=== PATIENT | female | born 1975 | race Caucasian/White ===

== ENCOUNTER 2016-07-19 07:11 | Observation (INO) | payer MEDICAID ==
[2016-07-19] MEDS ORDERED: NS 1,000 ML IV ONE (07:22)
--- NOTE | 2016-07-19 07:39 | CPEKG ---
Heart Rate: 86 RR Interval: 698 P-R Interval: 144 QRSD Interval: 84 QT Interval: 376 QTC Interval: 450 P [place]: 67 QRS [place]: 84 T Wave [place]: 48 EKG Severity - NORMAL ECG - EKG Impression: SINUS RHYTHM Electronically Signed By: Nixon Salazar 19-Jul-2016 14:19:43
[2016-07-19 07:59] LABS: % IMMATURE GRANULYOCYTES 0.2 % (0.0-1.1); ABSOLUTE IMMATURE GRANULOCYTES 0.01 10^3/uL (0.00-0.10); ADD DIFF? NO; ADD MORPH? NO; ADD SCAN? NO; ATYPICAL LYMPHOCYTE FLAG 0 (0-99); FRAGMENT RBC FLAG 0 (0-99); HEMATOCRIT 41.6 % (38.0-47.0); HEMOGLOBIN 14.2 g/dL (12.6-16.3); LEFT SHIFT FLG 0 (0-99); LIPEMIA HEMOLYSIS FLAG 90 (0-99); MEAN CELL HEMOGLOBIN 28.9 pg (27.9-34.1); MEAN CELL HEMOGLOBIN CONCENTR. 34.1 g/dL (32.4-36.7); MEAN CELL VOLUME 84.7 fL (81.5-99.8); PLATELET CLUMPS FLAG 0 (0-99); PLATELET COUNT 359 10^3/uL (150-400); RED BLOOD CELL COUNT 4.91 10^6/uL (4.18-5.33)
[2016-07-19 08:09] LABS: INR 1.13 (0.83-1.16); PROTIME(PATIENT) 14.4 SEC (12.0-15.0)
[2016-07-19 08:10] LABS: APTT 28.7 SEC (23.0-38.0)
[2016-07-19] MEDS ORDERED: BUPIVACAINE 0.5% 30 ML SDV ONE (08:14)
[2016-07-19] MEDS ORDERED: HEPARIN 10,000 UNIT/10 ML MDV ONE (08:14)
[2016-07-19] MEDS ORDERED: LIDOCAINE 1% 30 ML SDV ONE (08:14)
[2016-07-19] MEDS ORDERED: ISOPROTERENOL HCL 0.2 MG/ML 5ML AMP ONE (08:14)
[2016-07-19 08:15] LABS: ANION GAP 10 mEq/L (8-16); CARBON DIOXIDE 24 mEq/l (22-31); CHLORIDE 107 mEq/L (97-110); CREATININE 0.6 mg/dL (0.6-1.0); GLOMERULAR FILTRATION RATE > 60; GLUCOSE 90 mg/dL (70-100); MAGNESIUM 2.1 mg/dL (1.6-2.3); POTASSIUM 3.9 mEq/L (3.5-5.2); SODIUM 141 mEq/L (134-144)
[2016-07-19] MEDS ORDERED: IOPAMIDOL (ISOVUE-370) 150 ML BTL IV ONE (09:11)
[2016-07-19] MEDS ORDERED: HEPARIN/DEXTROSE 25,000 UNIT/500 ML BAG IV ONE (09:14)
[2016-07-19] MEDS ORDERED: PHENYLEPHRINE HCL 100 MCG/ML SYR ONE (09:28)
[2016-07-19] MEDS ORDERED: ONDANSETRON 4 MG/2 ML VIAL IVP PRN (11:32)
[2016-07-19] MEDS ORDERED: PROTAMINE SULFATE 50 MG/5 ML VIAL IVP ONE (11:32)
[2016-07-19] MEDS ORDERED: ACETAMINOPHEN 325 MG TAB PO PRN (11:32)
[2016-07-19] MEDS ORDERED: traMADol 50 MG TAB PO PRN (11:34)
[2016-07-19] MEDS ORDERED: LIDOCAINE 5% 1 EA PATCH TD PRN (11:34)
[2016-07-19] MEDS ORDERED: Fluticasone/Salmeterol [Advair Hfa 115-21 Mcg Inhaler] 2 PUFFS IH PRN (11:34)
[2016-07-19] MEDS ORDERED: ZOLPIDEM TARTRATE 5 MG TAB PO PRN (11:34)
[2016-07-19] MEDS ORDERED: fentaNYL 100 MCG/2 ML INJ ONE ×2 (11:54→12:45)
--- NOTE | 2016-07-19 11:58 | EPPROC ---
Electrophysiology Procedure Note: ELECTROPHYSIOLOGIC STUDY AND CATHETER MEDIATED ABLATION OF PREMATURE VENTRICULAR BEATS ORIGINATING IN THE LEFT CORONARY CUSP Procedures performed: 88636-90 EP evaluation with RA/RV/LA pace/record, with arrhythmia induction 20598-28 EP evaluation with RA/RV pace record, insert/reposition catheter, with arrhythmia induction 44254 Intracardiac catheter ablation, VT arrhythmogenic focus Fluoroscopy Coronary angiogram Left ventriculogram INDICATION: Recurrent PVC, not controlled with CCB Cannot take BB due to lung disease Previous EP study with sedation suppressed PVC The patient arrived in the Electrophysiology Laboratory in the fasting state. The right clavicular region, right groin, and left groin area were prepped and draped in the usual sterile manner. Appropriate non-invasive blood pressure, pulse oximetry and end-tidal CO2 monitoring was established. Anesthesiologist Dr. Ambrosio Grant. No sedation was administered for the case. All catheters were placed percutaneously using the modified Seldinger technique , and advanced into position under fluoroscopic guidance. One #7 Tamazight deflectable octapolar electrode catheter was advanced to the His-bundle position via the right femoral vein , this was later placed in the coronary sinus. 7 Fr arterial sheath was placed in RFA and 6 Fr sheath placed in the LFA. Heparin was administered to keep ACT > 300 seconds. Programmed stimulation was performed from the right atrium, right ventricle and CS (left atrium). The patient arrived to the electrophysiology laboratory in normal sinus rhythm with frequent PVC. PVC morphology LBBB inferior axis with QRS positive in leads V1-V6. Therefore we decided to map the LVOT and coronary cusps to start with. PVC frequency increased with albuterol inhaler. A 4 mm Navistar ablation catheter (B curve) with a magnetic sensor for the Carto 3D electroanatomic mapping system was used for mapping. Mapping (during PVC) of the left ventricular outflow tract, sinuses of Valsalva and anterior interventricular vein identified earliest ventricular activation at the mid left coronary cusp. Ventricular activation began 50 ms before the onset of the QRS complex with sharp negative deflection in the unipolar electrode. Coronary angiogram done simultaneously showed the ablation catheter was 1.3 cm away from the left main coronary artery. Ablation done at this site terminated PVC. Observation for 45 minutes after the application of radiofrequency current was performed during phenyephrine boluses and albuterol inhalation. No spontaneous ventricular extra systoles of the primary pattern seen prior to ablation were induced spontaneously . Rare ventricular extra systoles with different patterns were observed but these were due to catheter manipulation or mechanical contact. Left coronary angiogram at the end of the procedure did not show any coronary artery injury. Patient remained hemodynamically stable throughout the procedure. The catheters were removed. Protamine was administered. The patient was transferred to the cardiovascular holding area in stable condition. Vascular access sheaths were removed in the holding area. There were no apparent complications. CONCLUSIONS: 1. Premature ventricular beats originating from the left coronary cusp. 2. Successful catheter mediated ablation of the premature ventricular beats. 3. No apparent complications. Patient Problems: Problems Problem Status Diagnosed Ventricular premature complexes Acute
--- NOTE | 2016-07-19 12:07 | CPEKG ---
Heart Rate: 83 RR Interval: 723 QRSD Interval: 88 QT Interval: 392 QTC Interval: 461 QRS [place]: 82 T Wave [place]: 50 EKG Severity - ABNORMAL ECG - EKG Impression: NSR Electronically Signed By: Nixon Salazar 19-Jul-2016 14:19:30
[2016-07-19 12:44] LABS: ANION GAP 10 mEq/L (8-16); CARBON DIOXIDE 24 mEq/l (22-31); CHLORIDE 109 mEq/L (97-110); CREATININE 0.7 mg/dL (0.6-1.0); GLOMERULAR FILTRATION RATE > 60; GLUCOSE 94 mg/dL (70-100); MAGNESIUM 1.9 mg/dL (1.6-2.3); POTASSIUM 3.9 mEq/L (3.5-5.2); SODIUM 143 mEq/L (134-144)
[2016-07-19] MEDS: OXYCODONE/APAP 5/325 TAB PO PRN ×3 (15:28→20:23)
[2016-07-19] MEDS: predniSONE 5 MG TAB PO SCH ×2 (16:39→20:25)
[2016-07-19] MEDS: BACLOFEN 20 MG TAB PO SCH ×2 (16:39→20:25)
[2016-07-19] MEDS: PANTOPRAZOLE SODIUM 40 MG TAB PO SCH (20:22)
[2016-07-19] MEDS ORDERED: FAMOTIDINE 20 MG TAB PO SCH (21:00)
[2016-07-19] MEDS: IPRATROPIUM/ALBUTEROL 4GM MDI IH SCH (22:49)
[2016-07-20] MEDS: OXYCODONE/APAP 5/325 TAB PO PRN ×2 (02:04→05:52)
[2016-07-20 05:09] LABS: % IMMATURE GRANULYOCYTES 0.2 % (0.0-1.1); ABSOLUTE IMMATURE GRANULOCYTES 0.01 10^3/uL (0.00-0.10); ADD DIFF? NO; ADD MORPH? NO; ADD SCAN? NO; ATYPICAL LYMPHOCYTE FLAG 0 (0-99); FRAGMENT RBC FLAG 0 (0-99); HEMATOCRIT 36.8 % (38.0-47.0); HEMOGLOBIN 12.2 g/dL (12.6-16.3); LEFT SHIFT FLG 0 (0-99); LIPEMIA HEMOLYSIS FLAG 80 (0-99); MEAN CELL HEMOGLOBIN 28.8 pg (27.9-34.1); MEAN CELL HEMOGLOBIN CONCENTR. 33.2 g/dL (32.4-36.7); MEAN CELL VOLUME 86.8 fL (81.5-99.8); MEAN PLATELET VOLUME 9.5 fL (8.7-11.7); PLATELET CLUMPS FLAG 0 (0-99); PLATELET COUNT 299 10^3/uL (150-400); RED BLOOD CELL COUNT 4.24 10^6/uL (4.18-5.33); RED CELL DISTRIBUTION WIDTH 12.2 % (11.5-15.2)
[2016-07-20 05:14] LABS: INR 1.13 (0.83-1.16); PROTIME(PATIENT) 14.4 SEC (12.0-15.0)
[2016-07-20 05:36] LABS: ANION GAP 9 mEq/L (8-16); CALCIUM 8.2 mg/dL (8.5-10.4); CARBON DIOXIDE 24 mEq/l (22-31); CHLORIDE 108 mEq/L (97-110); CREATININE 0.7 mg/dL (0.6-1.0); GLOMERULAR FILTRATION RATE > 60; GLUCOSE 83 mg/dL (70-100); POTASSIUM 4.3 mEq/L (3.5-5.2); SODIUM 141 mEq/L (134-144)
[2016-07-20 05:45] LABS: CREATINE KINASE-MB FRACTION 1.18 ng/mL (0-3.19); TROPONIN I 0.187 ng/mL (0-0.034)
[2016-07-20 07:23] VITALS: BP 98/48; TEMP 97.9
[2016-07-20] MEDS ORDERED: FLU VACC QS 2016-17(3-64YR)/PF 0.5 ML SYR (FLUARIX QUAD) IM ONE (07:49)
[2016-07-20] MEDS ORDERED: PNEUMOCOCCAL 0.5ML VACCINE VIAL IM ONE (07:49)
[2016-07-20] MEDS: IPRATROPIUM/ALBUTEROL 4GM MDI IH SCH (08:49)
[2016-07-20 08:54] VITALS: PULSE 78; RESP 12; O2SAT 96
--- NOTE | 2016-07-20 08:58 | CPEKG ---
Heart Rate: 77 RR Interval: 779 P-R Interval: 156 QRSD Interval: 90 QT Interval: 396 QTC Interval: 449 P [place]: 63 QRS [place]: 80 T Wave [place]: 47 EKG Severity - NORMAL ECG - EKG Impression: SINUS RHYTHM Electronically Signed By: Nixon Salazar 20-Jul-2016 15:05:12
[2016-07-20] MEDS ORDERED: ASPIRIN 81 MG CHEWABLE TAB PO SCH (09:00)
[2016-07-20] MEDS ORDERED: Meloxicam [Mobic 15 Mg] 15 MG PO SCH (09:00)
[2016-07-20] MEDS: PANTOPRAZOLE SODIUM 40 MG TAB PO SCH (09:11)
[2016-07-20] MEDS: BACLOFEN 20 MG TAB PO SCH (09:21)
[2016-07-20] MEDS: predniSONE 5 MG TAB PO SCH (09:21)
--- NOTE | 2016-07-20 11:51 | ECHO ---
[id number] + + [address] : : [place] [address] : : [phone] + + Adult Echocardiographic Report + + :Name: RITA FARLEY [place] Date: 07/20/2016 08:01 AM : : Hospital Admission Number: [id number] Location: 205: :: 1975 Gender: Female Height: 62 in : :Age: 41 yrs Race: WH Weight: 125 lb : :Reason For Study: Post EP : : BSA: 1.6 meters2 : + + MMode/2D Measurements & Calculations IVSd: 0.75 cm RVDd: 2.9 cm FS: 24.3 % LVOT diam: 1.8 cm LVPWd: 0.69 cm LVIDd: 4.1 cm EDV(Teich): 72.4 ml LVOT area: 2.5 cm2 LVIDs: 3.1 cm ESV(Teich): 37.1 ml EF(Teich): 48.8 % Normal Measurement Values: + + :LVIDd (3.5-5.7cm) IVSd (0.6-1.1cm) LVPWd (0.6-1.1cm) Aortic Root (2.0-3.7cm)Left Atrium (1.5-4.0cm): :LV Vol(d) (76-115ml) LV Vol(s) (29-48ml) [place] Fraction (50-65%)PV [place] (0.6- 1.2m/s) TV [place] (0.4-1.0m/s) : :MV E [place] (0.8-1.0m/s)MV A [place] (0.3-1.0m/s)LVOT [place] (0.7-1.2m/s) Asc Ao Amrit ( 0.9-1.8m/s) : + + Doppler Measurements & Calculations MV E max amrit: MV V2 max: Ao mean PG: LV V1 mean P.9 cm/sec 126.9 cm/sec 3.3 mmHg 1.3 mmHg MV A max amrit: MV max PG: Ao V2 mean: LV V1 mean: 79.5 cm/sec 6.4 mmHg 84.0 cm/sec 50.6 cm/sec MV E/A: 1.5 MV V2 mean: Ao V2 VTI: 26.9 cm LV V1 VTI: 15.3 cm MV dec time: 80.1 cm/sec CRYSTAL(I,D): 1.4 cm2 0.15 sec MV mean P.0 mmHg MV V2 VTI: 22.0 cm MVA(VTI): 1.7 cm2 SV(LVOT): 38.4 ml PA V2 max: TR max amrit: 105.9 cm/sec 216.0 cm/sec PA max PG: TR max P.5 mmHg 18.7 mmHg RAP systole: 10.0 mmHg RVSP(TR): 28.7 mmHg Left Ventricle The left ventricle is normal in size and function. There is normal left ventricular wall thickness. Ejection Fraction = 50%. No regional wall motion abnormalities noted. Right Ventricle The right ventricle is normal in size and function. Atria The left atrial size is normal. Right atrial size is normal. The interatrial septum is intact with no evidence for an atrial septal defect. Mitral Valve The mitral valve is normal in structure and function. There is no mitral valve stenosis. There is trace to mild mitral regurgitation. Tricuspid Valve The tricuspid valve is normal in structure and function. There is no tricuspid stenosis. There is trace to mild tricuspid regurgitation. Right ventricular systolic pressure is normal. Aortic Valve The aortic valve is normal in structure and function. There is no aortic stenosis. There is no aortic insufficiency. Pulmonic Valve The pulmonic valve is normal in structure and function. There is no pulmonic valvular stenosis. There is no pulmonic valvular regurgitation. Great Vessels The aortic root is normal size. Pericardium/Pleural Small pericardial effusion. Conclusion A complete two-dimensional transthoracic echocardiogram was performed (2D, M-mode, Doppler and color flow Doppler). The study was technically difficult. The left ventricle is normal in size and function. Ejection Fraction = 50%. There is trace to mild mitral regurgitation. There is trace to mild tricuspid regurgitation. Right ventricular systolic pressure is normal. The aortic valve is normal in structure and function. Small pericardial effusion. Final Reading Physician: Johnny Younger signed on 07/20/2016 11:50 AM Ordering Physician: Lucho Barnes Performed By: Penny Morin
--- NOTE | 2016-07-21 14:20 | GDS ---
[f rep st] DISCHARGE SUMMARY DISCHARGE DIAGNOSES: 1. Frequent premature ventricular contractions status post electrophysiology study and successful pr emature ventricular contraction ablation on this admission. 2. History of chronic obstructive pulmonary disease with nocturnal hypoxemia with nocturnal oxygen u se. PROCEDURES: 1. 07/19/2016: Electrophysiology procedure with premature ventricular contractions found originatin g from the left coronary cusp status post successful catheter-mediated premature ventricular beats. 2. 07/20/2016: Echocardiogram which shows an ejection fraction of 50% with mild mitral regurgitatio n, mild tricuspid regurgitation, a small pericardial effusion. BRIEF HISTORY: Please see dictated H and P from our office for complete details. In brief, the jason ent is a 41-year-old female with a history significant for asthma and COPD, nocturnal hypoxemia, who was noting frequent palpitations. She proceeded to Holter monitoring which showed 11,000 PVCs in a 2 4-hour period. Despite medical therapy, she continued to have symptoms. She therefore was evaluated by Dr. Barnes and proceeded to repeat PVC ablation. Her previous EPS was done under sedation and not e nough PVCs were seen to be able to map them. She therefore had the procedure done while awake. This was successfully completed on 07/19/2016. On day of discharge, patient notes some mild chest discom fort. She denies any groin pain. She is being discharged to home with followup as an outpatient. RESULTS PENDING: None. DIET: Per previous. ACTIVITY: Groin precautions were reviewed. DISCHARGE MEDICATIONS: Please see medication reconciliation for complete detail. She is being discharged on all her home medications which include Ambien, baclofen, aspirin, Combiven t, fluticasone, Zofran, omeprazole, tramadol, prednisone, ranitidine, Lidoderm patch. She is given a short prescription for Percocet. Her diltiazem has been stopped. FOLLOWUP: Follow up with Dr. Barnes as scheduled in 2 weeks time. /[id number]/MODL
== END 2016-07-20 10:06 | disposition home or self-care (01) ==
LOC: FCATH 07:11 → F2W 11:32
PROVIDERS: ADMIT Internal Medicine Cardiovascular Disease; ATTEND Internal Medicine Cardiovascular Disease
PROC: 02K83ZZ Map Conduction Mechanism, Percutaneous Approach (ICD-10-PCS; principal; 2016-07-19)
PROC: 4A023FZ Measurement of Cardiac Rhythm, Percutaneous Approach (ICD-10-PCS; principal; 2016-07-19)
PROC: 5A1213Z Performance of Cardiac Pacing, Intermittent (ICD-10-PCS; principal; 2016-07-19)
PROC: 025L3ZZ Destruction of Left Ventricle, Percutaneous Approach (ICD-10-PCS; principal; 2016-07-19)
PROC: B2101ZZ Fluoroscopy of Single Coronary Artery using Low Osmolar Contrast (ICD-10-PCS; principal; 2016-07-19)
PROC: B2151ZZ Fluoroscopy of Left Heart using Low Osmolar Contrast (ICD-10-PCS; principal; 2016-07-19)
DX: I49.3 Ventricular premature depolarization (principal); J44.9 Chronic obstructive pulmonary disease, unspecified; J45.909 Unspecified asthma, uncomplicated; K21.9 Gastro-esophageal reflux disease without esophagitis; Z87.891 Personal history of nicotine dependence; Z23 Encounter for immunization
CPT/HCPCS: 93005; 93306; 93621; 93623; 93654; C1731; C1732; G0378; J1644; J2370; J2720; J3010; Q9967

== ENCOUNTER 2016-07-22 16:25 | Inpatient (IN) | payer MEDICAID ==
[2016-07-22] MEDS ORDERED: ASPIRIN 81 MG CHEWABLE TAB PO ONE (17:03)
[2016-07-22] MEDS ORDERED: NS 1,000 ML IV ONE (17:03)
--- NOTE | 2016-07-22 17:06 | CPEKG ---
Heart Rate: 90 RR Interval: 667 P-R Interval: 136 QRSD Interval: 86 QT Interval: 360 QTC Interval: 441 P [place]: 57 QRS [place]: 80 T Wave [place]: 37 EKG Severity - NORMAL ECG - EKG Impression: SINUS RHYTHM Electronically Signed By: Nila Ramirez 22-Jul-2016 21:51:27
--- NOTE | 2016-07-22 17:09 | EDPHY ---
H & P Stated Complaint: midsternal CP since ablation wed now having L arm numbness since this am Source: Patient Exam Limitations: No limitations - Personal History LMP (Females 10-55): 8-14 Days Ago Current Tetanus/Diphtheria Vaccine: Unsure Current Tetanus Diphtheria and Acellular Pertussis (TDAP): Unsure - Medical/Surgical History Hx Asthma: Yes Hx Chronic Respiratory Disease: Yes Hx Diabetes: No Hx Cardiac Disease: Yes Hx Renal Disease: No Hx Cirrhosis: No Hx Alcoholism: No Hx HIV/AIDS: No Hx Splenectomy or Spleen Trauma: No Other PMH: COPD, oxygen dependence, chronic chest pain, Hysterectomy, bladder surgery, tonsillectomy, D+C, GERD; bulging L4-L5disc, respiratory bronchilalitis , voice box dysfunction, frequent PVCs - Social History Smoking Status: Former smoker HPI/ROS: CHIEF COMPLAINT: Chest Pain HISTORY OF PRESENT ILLNESS: Chest pain since Sunday soon after she had an ablation done for PVCs. The patient has had central left-sided chest pain that is sharp stabbing pain. Moderate to severe pain at times. Waxes and wanes but never resolved. No particular modifying factors. Concern now she is having some numbness and tingling of the left arm that started early this morning when she awoke. No weakness of the arm. Nausea but no vomiting. Some shortness of breath that is baseline. No abdominal or urinary complaints. No fever chills. No history of venous thrombolic event. Nonsmoker. No hypertension or diabetes. FAMILY HISTORY CARDIAC: Positive for coronary artery disease in mother, father and grandparents. PRIOR CARDIAC WORKUP: Ablation on Sunday. No previous cardiac stress test or heart catheterization REVIEW OF SYSTEMS: Ten systems reviewed and are negative unless otherwise noted in the HPI EXAMINATION: General Appearance: Alert, no distress Head: normocephalic, atraumatic Eyes: Pupils equal and round, no conjunctival pallor or injection ENT, Mouth: Mucous membranes moist Neck: Normal inspection, supple, non-tender Respiratory: mild rhonchi. No crackles, wheezing or consolidation Cardiovascular: Regular rate and rhythm. Pulses intact distally with symmetric 2+ radial and DP pulses. Gastrointestinal: Abdomen is soft and nontender Neurological: A&Ox4, nonfocal. Paresthesia left arm without anesthesia with normal radial, ulnar and median sensation on exam. Strength is 5/5 in all limbs. No pronator drift. Skin: Warm and dry, no rash Extremities: Nontender, no pedal edema. ROM intact in all limbs Psychiatric: Mood and affect normal DIFFERENTIAL DIAGNOSES: Including but not limited to 1. Acute Chest Pain 2. ACS 3. Stable Angina 4. Pneumonia 5. PE 6. GERD MDM: 6:[address] Calloway notified me that the CT scan of the chest is completely within normal limits. No abnormalities. I re-evaluated the patient and she is resting comfortably. Minimal improvement but no worsening. She is hemodynamically stable with normal vital signs. Laboratory studies are within normal limits with exception of a mildly elevated troponin at 0.058. I suspect this is within normal limits given an ablation on Sunday. I have paged her internal controls consultant Dr. Barnes and will discuss further care. 7:[address] Barajas has examined the patient. He will admit the patient to his service. MRI is pending at this time. 8:[address] Calloway that the MRI of the brain is completely within normal limits. No evidence of stroke or acute abnormality. This point should be admitted to Cardiology service to the floor. She remains hemodynamically stable. Her chest pain is intermittently waxing and waning without any significant worsening. Labs are stable other than the troponin which I have discussed with Cardiology. They will monitor this and admit her for further care. EKG: Interpreted by Dr. Ramirez Rate is 90 beats per minute, normal sinus rhythm. P are 136, QTC 360. Normal axis. inverted T-waves only in aVL and AVR. No ST depression or elevation. No T-wave inversions. Interpretation normal sinus rhythm SUPERVISION: Patient was evaluated in conjunction with the supervising physician. Please see their note for details. (Wilfredo Zamora) Constitutional: Initial Vital Signs Temperature (C) 36.5 C 07/22/16 16:36 Heart Rate 99 07/22/16 16:36 Respiratory Rate 18 07/22/16 16:36 Blood Pressure 130/109 H 07/22/16 16:36 O2 Sat (%) 96 07/22/16 16:36 O2 Delivery Mode Room Air O2 (L/minute) 2 Allergies/Adverse Reactions: diphenhydramine HCl [From Benadryl] Allergy (Intermediate, Verified 12/13/15 17: 57) Rash doxycycline Allergy (Verified 12/13/15 17:57) Home Medications: Medication Instructions Recorded Baclofen [Baclofen 20 mg (*)] 20 mg PO TID 09/13/15 Lidocaine 5% [Lidoderm 5% Patch 1 ea TD DAILY PRN 09/13/15 (*)] Omeprazole [Prilosec 20 mg] 40 mg PO BID 09/13/15 Ondansetron Odt [Zofran Odt 4 mg 4 mg PO DAILY PRN 09/13/15 (*)] Ranitidine HCl [Zantac] 300 mg PO HS 09/13/15 Fluticasone/Salmeterol [Advair Hfa 2 puffs IH BID PRN 01/31/16 115-21 Mcg Inhaler] Herbals/Supplements -Info Only 1 ea PO DAILY 01/31/16 Ipratropium/Albuterol [Combivent 2 inh IH BID 01/31/16 Respimat Inhal [place](*)] Meloxicam [Mobic 15 mg] 15 mg PO DAILY 01/31/16 predniSONE 5 mg PO TID 01/31/16 traMADol [Ultram 50 mg (*)] 50 - 100 mg PO DAILY PRN 01/31/16 Aspirin [Aspirin 81mg (*)] 81 mg PO DAILY 07/19/16 Zolpidem Tartrate [Ambien 5MG (*)] 10 mg PO HS PRN 07/19/16 oxyCODONE/APAP 5/325 [Percocet 1 - 2 tab PO Q4HRS PRN #20 tab 07/20/16 5/325 (*)] Medical Decision Making ED Course/Re-evaluation: The patient was evaluated and managed by the physician's contact center assistant. My cosignature indicates that I reviewed the chart and I agree with the findings and plan of care as documented. I am the secondary supervising physician. ( Nila Ramirez) - Data Points Laboratory Results: Laboratory Results 07/22/16 17:30 07/22/16 17:30 07/22/16 17:30 WBC 7.12 10^3/uL (3.80-9.50) RBC 4.72 10^6/uL (4.18-5.33) Hgb 13.8 g/dL (12.6-16.3) Hct 40.8 % (38.0-47.0) MCV 86.4 fL (81.5-99.8) MCH 29.2 pg (27.9-34.1) MCHC 33.8 g/dL (32.4-36.7) RDW 12.1 % (11.5-15.2) Plt Count 319 10^3/uL (150-400) MPV 9.2 fL (8.7-11.7) Neut % (Auto) 66.4 % (39.3-74.2) Lymph % (Auto) 24.0 % (15.0-45.0) [place] % (Auto) 7.2 % (4.5-13.0) Eos % (Auto) 1.8 % (0.6-7.6) Baso % (Auto) 0.3 % (0.3-1.7) Nucleat RBC Rel Count 0.0 % (0.0-0.2) Absolute Neuts (auto) 4.73 10^3/uL (1.70-6.50) Absolute Lymphs (auto) 1.71 10^3/uL (1.00-3.00) Absolute Monos (auto) 0.51 10^3/uL (0.30-0.80) Absolute Eos (auto) 0.13 10^3/uL (0.03-0.40) Absolute Basos (auto) 0.02 10^3/uL (0.02-0.10) Absolute Nucleated RBC 0.00 10^3/uL (0-0.01) Immature Gran % 0.3 % (0.0-1.1) Immature Gran # 0.02 10^3/uL (0.00-0.10) PT 14.0 SEC (12.0-15.0) INR 1.09 (0.83-1.16) APTT 29.1 SEC (23.0-38.0) Sodium 143 mEq/L (134-144) Potassium 3.9 mEq/L (3.5-5.2) Chloride 107 mEq/L (97-110) Carbon Dioxide 23 mEq/l (22-31) Anion Gap 13 mEq/L (8-16) BUN 7 mg/dL (7-23) Creatinine 0.6 mg/dL (0.6-1.0) Estimated GFR > 60 Glucose 84 mg/dL (70-100) Calcium 8.9 mg/dL (8.5-10.4) Magnesium 2.0 mg/dL (1.6-2.3) Troponin I 0.058 H ng/mL (0-0.034) TSH 2.800 uIU/mL (0.465-4.680) Medications Given: Discontinued Medications Aspirin (Aspirin) 324 mg PO EDNOW ONE Stop: 07/22/16 17:04 Last Admin: 07/22/16 17:41 Dose: Not Given Sodium Chloride (Ns) 1,000 mls @ 0 mls/hr IV ONCE ONE PRN Reason: Wide Open Stop: 07/22/16 17:04 Last Admin: 07/22/16 17:42 Dose: 1,000 mls Morphine Sulfate (Morphine) 6 mg IVP Q1HR ONE Stop: 07/22/16 17:11 Last Admin: 07/22/16 17:45 Dose: 4 mg Ondansetron HCl (Zofran) 4 mg IVP EDNOW ONE Stop: 07/22/16 17:11 Last Admin: 07/22/16 17:45 Dose: 4 mg Departure - Departure Clinical Impression: Chest pain Condition: Good
[2016-07-22] MEDS ORDERED: ONDANSETRON 4 MG/2 ML VIAL IVP ONE (17:10)
[2016-07-22 17:46] LABS: % IMMATURE GRANULYOCYTES 0.3 % (0.0-1.1); ABSOLUTE IMMATURE GRANULOCYTES 0.02 10^3/uL (0.00-0.10); ADD DIFF? NO; ADD MORPH? NO; ADD SCAN? NO; ATYPICAL LYMPHOCYTE FLAG 10 (0-99); FRAGMENT RBC FLAG 0 (0-99); HEMATOCRIT 40.8 % (38.0-47.0); HEMOGLOBIN 13.8 g/dL (12.6-16.3); LEFT SHIFT FLG 0 (0-99); LIPEMIA HEMOLYSIS FLAG 90 (0-99); MEAN CELL HEMOGLOBIN 29.2 pg (27.9-34.1); MEAN CELL HEMOGLOBIN CONCENTR. 33.8 g/dL (32.4-36.7); MEAN CELL VOLUME 86.4 fL (81.5-99.8); MEAN PLATELET VOLUME 9.2 fL (8.7-11.7); PLATELET CLUMPS FLAG 20 (0-99); PLATELET COUNT 319 10^3/uL (150-400); RED BLOOD CELL COUNT 4.72 10^6/uL (4.18-5.33); RED CELL DISTRIBUTION WIDTH 12.1 % (11.5-15.2)
[2016-07-22 17:54] LABS: INR 1.09 (0.83-1.16)
[2016-07-22 17:55] LABS: ANION GAP 13 mEq/L (8-16); APTT 29.1 SEC (23.0-38.0); CALCIUM 8.9 mg/dL (8.5-10.4); CARBON DIOXIDE 23 mEq/l (22-31); CHLORIDE 107 mEq/L (97-110); CREATININE 0.6 mg/dL (0.6-1.0); GLOMERULAR FILTRATION RATE > 60; GLUCOSE 84 mg/dL (70-100); POTASSIUM 3.9 mEq/L (3.5-5.2); SODIUM 143 mEq/L (134-144)
[2016-07-22 18:07] LABS: TROPONIN I 0.058 ng/mL (0-0.034)
[2016-07-22] MEDS ORDERED: IOPAMIDOL (ISOVUE 370) 100 ML BTL IV ONE (18:13)
--- NOTE | 2016-07-22 18:25 | DX ---
Portable AP chest. July 22, 2016At 1749 History: Chest pain Comparison examination: September 13, 2015 Findings: Lungs are clear. Heart size is normal. No infiltrate or effusion. Impression: Normal chest
--- NOTE | 2016-07-22 18:46 | CT ---
CT of the Chest With Contrast (CT Pulmonary Angiogram) Clinical History: Chest pain. Technique: Thinly collimated multidetector helical CT imaging was performed through the chest while 85 mL of Isovue-370 were injected intravenously without complication. The images were then transferr ed to an independent workstation where multiplanar and three-dimensional reconstructions were perform ed by the interpreting physician and reviewed at multiple windows. Dose reduction techniques were uti lized. Findings: Lung Windows: No infiltrate, effusion, or mass identified. Mediastinal Windows: No significant mediastinal or axillary lymphadenopathy identified. No significan t pleural disease identified. Images of the upper abdomen appear normal. CT Pulmonary Angiogram: The visualized pulmonary arterial segments appear normal without filling defe ct to suggest acute pulmonary thromboembolic disease. No evidence of pulmonary venous stenosis. Impression: Negative CT examination of the chest for acute pulmonary thromboembolic disease. Results called toSalty Zamora PA-C at the time of the interpretation.
[2016-07-22] MEDS ORDERED: ACETAMINOPHEN 325 MG TAB PO PRN (20:04)
[2016-07-22] MEDS ORDERED: ONDANSETRON DISINTEGRATING 4 MG TAB PO PRN (20:04)
[2016-07-22] MEDS ORDERED: ONDANSETRON 4 MG/2 ML VIAL IVP PRN (20:04)
--- NOTE | 2016-07-22 20:51 | MR ---
MRI of the Brain (Without Contrast) July 22, 2016 Clinical Indication: Left upper extremity paresthesias. Evaluate for possible acute infarction.. Technique: T1-weighted images were acquired axially and sagittally from the foramen magnum to the ve rtex. Axial FLAIR, fast T2-weighted, and diffusion-weighted axial images were obtained without contr ast. Findings: The ventricles, cisterns, and sulci are normal without atrophy, hydrocephalus, midline dayan ft, herniation, or epidural/subdural hematomas. No intracranial hemorrhage or masses. Diffusion-weigh stephon sequence demonstrates no acute infarct. Cerebellar tonsils are in normal position. Pituitary glan d is normal in size. Normal signal flow void in the superior sagittal sinus, basilar artery, and bila teral internal carotid arteries indicating patency. Paranasal sinuses and mastoid air cells are clear . Impression: Normal MRI of the brain without contrast. Results called to Wilfredo Zamora PA-C, at 8:45 PM
--- NOTE | 2016-07-22 21:20 | GHP ---
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 The patient has prev iously had an ablation procedure with improvement in her PVCs during a sedated state. She underwent a repeat EP study and ablation procedure under the care of Dr. Lucho Barnes which was mainly on the lef t side. They basically found that there were PVCs originating in the left coronary cusp and that are a was ultimately ablated. The patient did have a coronary angiogram following the procedure, silvio hooperg no damage to the left main coronary ostium, and the patient was only discharged to home on aspir in daily and without complications in-house. The patient called me late this evening with complaints of left arm numbness and a sensation of tingl ing in her left arm which was new. Because of these findings, I felt she should go to the Emergency Department given her history. The patient was seen in the Emergency Department and underwent evaluat ion with an EKG, chest x-ray, and CT pulmonary angiogram, all of which were unremarkable. I was call ed to discuss the patient with the PA who saw the patient in the Emergency Department, Wilfredo Zamora, and I felt it would be most prudent for us to rule out a thromboembolic event, given that patient did have a left-sided ablation which could of course be a nidus for clot formation and subsequent thromb oembolus and, therefore, TIA or CVA. An MRI of the brain has been ordered, but has not yet been repo rted. MEDICATION: The patient's medications include aspirin daily. PAST MEDICAL HISTORY: The patient has a known history of asthma, oxygen dependence, chronic chest pa in, hysterectomy, prior bladder surgery, tonsillectomy, D and C, gastroesophageal reflux disease, bul ging L4-L5 disk, respiratory bronchiolitis, voice box dysfunction, and frequent PVCs. Her smoking hi story is pertinent for being a former smoker. She does not have diabetes, kidney dysfunction, alcoho lism, HIV or AIDS. Her last menstrual period was 8 to 14 days ago. FAMILY HISTORY: Positive for coronary disease in her mother, father and grandparents, but she had an angiogram, as I mentioned, which was negative for blockage following her ablation procedure. PHYSICAL EXAMINATION: VITAL SIGNS: The patient has a blood pressure of 104/84, mean arterial pressu re 90, heart rate 78 and regular, respirations 16 unlabored, oxygen saturation 96% on room air. GENE RAL: The remainder of the exam was obtained by Wilfredo, as the patient is currently in the MRI scanner and cannot be examined at this time. NECK: No JVD or carotid bruit. HEART: She did not have a ru b or gallop sound. LUNGS: Clear to auscultation without wheezes. ABDOMEN: Benign with positive arron wel sounds. Nondistended, nontender. EXTREMITIES: Warm, dry, and well-perfused, without significan t peripheral edema. Groin revealed minor ecchymosis without significant hematoma. IMAGIN. The CT scan has been reported as totally normal. 2. The EKG is again without significant abnormality. 3. The results of her MRI of the brain are pending. LABS: 1. The patient's laboratory studies reveal an elevated troponin which would be expected with a recen t ablation. 2. Her white count is 7.12, H and H 13.8 and 40.8, platelet count 319. 3. Coagulation studies were normal at 1.09, 14 and 1.09, with a PTT of 29.1. 4. Chemistries were unremarkable with a normal TSH and magnesium at 2. 5. Potassium 3.9, BUN and creatinine of 7 and 0.6. Troponin 0.058 ng/mL. IMPRESSION AND PLAN: Subacute chest pain syndrome which has been present ever since ablation on the 18th of this month. The patient should be evaluated with serial EKG and isoenzymes. I suspect that troponin elevation is related to her recent ablation procedure. It would be an expected finding. Pe nding the results of the MRI, she may need further evaluation. Because she has had a recent menstrua l period, I do not think that deep venous thrombosis prophylaxis is warranted, as the patient has no evidence of thromboembolic disease on the basis of CT angiogram of the chest. I have asked that the patient's activity be limited to bathroom privileges with frequent neuro checks overnight. She is to notify the nurses promptly if she develops numbness, tingling, or progressive pain within her chest, and I am also to be notified for those issues. /[id number]/MODL
[2016-07-23] MEDS ORDERED: ZOLPIDEM TARTRATE 5 MG TAB PO ONE (01:39)
[2016-07-23 06:41] LABS: TROPONIN I 0.047 ng/mL (0-0.034)
--- NOTE | 2016-07-23 13:22 | GPROG ---
[f rep st] PROGRESS NOTE DATE OF SERVICE: 07/23/2016 HISTORY: Sujatha Herron is a patient with multiple medical problems as noted in my H and P, who pr esented to the emergency department yesterday with complaints of left arm numbness. It felt as if he r entire arm, especially the posterior aspect of her left triceps, was numb and tingly as if she had slept on it wrong and as if it were "asleep" and this sensation did not seem to go away. The patient of note did have an ablation procedure under the care of Dr. Barnes on 07/18/2016, which required mappi ng in the left ventricular outflow tract for her PVCs, as well as within the left coronary cusp. Onl y the focus of activity was found to be in the left coronary cusp and ablation was performed in that location. An angiogram performed after the ablation did not reveal evidence of damage to the left ma in cusp. The patient has suffered chest discomfort ever since the procedure, which is likely pericardial in or igin. She has also had the left arm numbness and sensation of tingling as I mentioned, which was con cerning. Yesterday, her evaluation included a CT scan of the chest which was reported to be normal. Serial EKGs have been performed, and an MRI of her brain was also performed and interpreted by Dr. Antonieta Calloway and felt to be a normal MRI of the brain without contrast. This morning, the patient's troponin, which would be expected to be elevated minimally postablation, has trended down from 0.058 to 0.047. The patient continues to complain of intermittent chest discomfort, as well as ongoing lef t arm numbness and tingling. Please note that her H and P, she reflected the patient has allergy to diphenhydramine and doxycycline, which I do not believe I noted on her H and P, if that could be monalisa ected. PHYSICAL EXAMINATION: VITAL SIGNS: At the time of my evaluation, blood pressure 104/59, pulse is 70 and regular, respirations are 16 and unlabored, oxygen saturation 94%. She has not had PVCs on e telemetry monitoring. NECK: Reveals no JVD or carotid bruit. HEART: Reveals normal S1, S2 witho ut S3, S4. I do not appreciate a rub or gallop sound. LUNGS: Clear to auscultation bilaterally wit hout wheezes, rales, or rhonchi. ABDOMEN: Benign with positive bowel sounds. Nondistended and nont brenda. EXTREMITIES: Warm, dry, and well perfused without significant peripheral edema. She does no t have lower extremity swelling, and the groin access sites on the right and left are healing normall y without significant ecchymosis or bruit. IMPRESSION AND PLAN: Sujatha has left arm numbness and tingling which is persistent, as well as gera st discomfort postablation, which was performed in the left coronary cusp. I think it would be prude nt to keep the patient overnight for possible Neurology consultation tomorrow, and I would like for t he patient be seen by Dr. Barnes, who performed the initial procedure, so that further disposition and p lans can be made. It may be reasonable to treat her with nonsteroidal antiinflammatory agents given her pericardial type chest discomfort. I will leave that to the discretion of Dr. Barnes and his opinio n at the time of evaluation tomorrow. Copy requested to: Primary Care /[id number]/MODL
[2016-07-23] MEDS ORDERED: FLU VACC QS 2016-17(3-64YR)/PF 0.5 ML SYR (FLUARIX QUAD) IM ONE ×2 (16:20→17:36)
[2016-07-23] MEDS ORDERED: PNEUMOCOCCAL 0.5ML VACCINE VIAL IM ONE (16:20)
[2016-07-23] MEDS ORDERED: SALMETEROL IH PRN (18:40)
[2016-07-23] MEDS ORDERED: LIDOCAINE 5% 1 EA PATCH TD PRN (18:40)
[2016-07-23] MEDS ORDERED: FLUTICASONE IH PRN (18:40)
[2016-07-23] MEDS ORDERED: NON-FORMULARY NEW DRUG (Ranitidine Hcl [Zantac] 300 MG) PO SCH (21:00)
[2016-07-23] MEDS ORDERED: NON-FORMULARY NEW DRUG (Omeprazole [Prilosec 20 Mg] 40 MG) PO SCH (21:00)
[2016-07-23] MEDS ORDERED: FAMOTIDINE 20 MG TAB PO SCH (21:00)
[2016-07-23] MEDS ORDERED: NON-FORMULARY NEW DRUG (Zolpidem Tartrate [Ambien] 10 MG) PO SCH (21:00)
[2016-07-23] MEDS ORDERED: ZOLPIDEM TARTRATE 5 MG TAB PO SCH (21:00)
[2016-07-23] MEDS: ASPIRIN 81 MG CHEWABLE TAB PO SCH (21:09)
[2016-07-23] MEDS: PANTOPRAZOLE SODIUM 40 MG TAB PO SCH (21:09)
[2016-07-23] MEDS: IPRATROPIUM/ALBUTEROL 4GM MDI IH SCH (21:24)
[2016-07-24] MEDS: IPRATROPIUM/ALBUTEROL 4GM MDI IH SCH (08:36)
[2016-07-24] MEDS: ASPIRIN 81 MG CHEWABLE TAB PO SCH (08:56)
[2016-07-24] MEDS: PANTOPRAZOLE SODIUM 40 MG TAB PO SCH (08:56)
[2016-07-24] MEDS ORDERED: KETOROLAC 30 MG/1 ML SDV IVP ONE (10:20)
[2016-07-24 11:24] LABS: ANION GAP 9 mEq/L (8-16); CALCIUM 8.7 mg/dL (8.5-10.4); CARBON DIOXIDE 22 mEq/l (22-31); CHLORIDE 106 mEq/L (97-110); CREATININE 0.7 mg/dL (0.6-1.0); GLOMERULAR FILTRATION RATE > 60; GLUCOSE 86 mg/dL (70-100); POTASSIUM 4.2 mEq/L (3.5-5.2); SODIUM 137 mEq/L (134-144)
--- NOTE | 2016-07-24 12:28 | PDCARPN ---
Cardiology Progress Note Chief Complaint: Chest discomfort and left arm numbness Assessment/Plan: Assessment: PVC status post ablation left coronary cusp - troponin is on a declining trend since the ablation, there are no EKG changes suggestive of myocardial ischemia. Chest pain is consistent with pericarditis. We will give her 1 dose of IV Toradol to see if her symptoms improve. We will also check an echocardiogram to rule out pericardial effusion . CT of the chest did not show any aortic or pulmonary arterial pathology. - on physical examination she has no weakness or sensory loss in upper extremities. MRI of the brain was normal. We will have Neurology see the patient. If echocardiogram is normal will start her on Eliquis 2.5 mg twice daily for 1 month - PVCs have improved significantly since the ablation and she has not had any palpitations. 07/24/16 12:26 Subjective: patient seen and examined. She states that chest pain is better though still present. Arm numbness is mainly in the posterior part of the left arm, this is constant. Time Spent With Patient: 30 minutes Objective: Vital Signs (8 Hrs) Temp Pulse Resp BP Pulse Ox 07/24/16 08:00 36.4 C 86 18 95/65 L 99 Intake/Output (24 Hrs) 07/23/16 07/24/16 07/25/16 11:59 11:59 11:59 Intake Total 1950 Balance 1950 Intake: Oral (ml) 1950 IV Intake (ml) 0 Other: Number of Voids Toilet 2 Number of Stools Toilet 1 Result Diagrams: 07/22/16 17:30 07/24/16 10:40 Telemetry: sinus rhythm. Rare PVCs. - Physical Exam Constitutional: WDWN, no apparent distress Eyes: PERRL, EOMI Ears, Nose, Mouth, Throat: moist mucous membranes Cardiovascular: regular rate and rhythm, no rubs Respiratory: clear to auscultate bilat ICD10 Worksheet Patient Problems: Problems Problem Status Diagnosed Chest pain Acute Ventricular premature complexes Acute
--- NOTE | 2016-07-24 14:22 | PDCARPN ---
Cardiology Progress Note Chief Complaint: Patient reports ongoing left upper arm numbness. And midsternal chest pressure. Assessment/Plan: Assessment: 41-year-old female with noted history of COPD and frequent PVCs. Unable to take beta-blockers due to history increases COPD exacerbation. Underwent EP study with PVC ablation in the left coronary cusp by Dr. Barnes on 07/19/2016, no apparent complications. Post ablation coronary angiogram showed no evidence of damage to the left main cusp. Discharge home on aspirin therapy. Appeared to be no complications from procedure. Patient readmitted on 07/22/2016 for complain of ongoing chest pressure and left arm numbness. She reporting numbness and tingling as if, fell asleep on it wrong close . The symptoms did not go away. CT of the chest done on 07/22/2016 showed no signs of acute pulmonary thrombus disease,. MRI of the brain showed was normal. Noted to have mildly elevated troponin on admission, 0.058, but this was decreased from her discharge troponin post ablation 0.187, and the on the 20 second, was trending downward at 0.047. Electrocardiogram done admission showed no Q-wave, ST, T- wave abnormalities suggesting of ischemia. She reports today improvement in her chest pressure, continuation with numbness in her left arm. Patient was seen with Dr. Barnes today. Plan: 1. Chest pressure: No signs of ischemia on electrocardiogram, downward decline of troponin status post ablation. CTA negative for PE. Question possible pericarditis post cardiac ablation, will have her get echocardiogram to evaluate cardiac structure and function. Will give her a dose of IV Toradol to see if helps relieve symptoms more. 2. Left arm numbness: MRI of brain normal, Dr. Jha, Neurology, has seen the patient, he reports left numbness is probably due to past injury, left cervical radiculopathy. Does not feel this is due to CVA or TIA. Discussed with Dr. Barnes , will not start her Eliquis as initially planned, continue on aspirin therapy. 07/24/16 14:22 Subjective: Patient reports no palpitations, lightheadedness, orthopnea, PND, near-syncope, or syncopal events. Reports continuation of left arm numbness, midsternal chest pressure. Reviewed/Discussed With: other (Dr Jha, Dr Barnes) Objective: Vital Signs (8 Hrs) Temp Pulse Resp BP Pulse Ox 01/23/17 12:00 36.8 C 83 17 106/48 L 95 07/24/16 08:00 36.4 C 86 18 95/65 L 99 Intake/Output (24 Hrs) 07/23/16 07/24/16 07/25/16 05:59 05:59 05:59 Intake Total 1950 Balance 1950 Intake: Oral (ml) 1950 IV Intake (ml) 0 Other: Number of Voids Toilet 2 Number of Stools Toilet 1 Result Diagrams: 07/22/16 17:30 07/24/16 10:40 Cardiac Labs: Cardiac Lab Results (72 Hrs) 07/24/16 10:40 Sodium 137 Potassium 4.2 Chloride 106 Carbon Dioxide 22 Anion Gap 9 BUN 9 Creatinine 0.7 Estimated GFR > 60 Glucose 86 Calcium 8.7 - Physical Exam Constitutional: WDWN Ears, Nose, Mouth, Throat: moist mucous membranes Cardiovascular: regular rate and rhythm, no murmurs, no rubs, No jugular vein distention, No carotid bruit Peripheral Pulses: 2+: carotid (R), carotid (L), dorsalis-pedis (R), dorsalis- pedis (L) Respiratory: clear to auscultate bilat, no crackles, no wheezes, No reduced air movement Gastrointestinal: normoactive bowel sounds Skin: no rashes, warm, no edema Neurologic: AAOx3 Psychiatric: cooperative, interactive, following commands, not anxious ICD10 Worksheet Patient Problems: Problems Problem Status Diagnosed Chest pain Acute Ventricular premature complexes Acute
[2016-07-24] MEDS ORDERED: IBUPROFEN 200 MG TAB PO SCH (15:00)
--- NOTE | 2016-07-24 15:35 | ECHO ---
[id number] + + [address] : : [place] [address] : : [phone] + + Adult Echocardiographic Report + + :Name: RITA FARLEYdesi Date: 07/24/2016 02:50 PM : : Hospital Admission Number: [id number] Location: 208: :: 1975 Gender: Female : :Age: 41 yrs Race: WH : :Reason For Study: Chest pain post ablation : + + Left Ventricle LV base/mid septal wall appears hypokinetic. Atria The atrial septum is aneurysmal. Pericardium/Pleural There is no pericardial effusion. Conclusion Limited 2-D echo. The atrial septum is aneurysmal. No pericardial effusion Final Reading Physician: Lucho Barnes MD electronically signed on 07/24/2016 03:34 PM Ordering Physician: Trell Jimenez Performed By: Mariana Peterson, [facility]
[2016-07-24 16:58] VITALS: BP 101/67; PULSE 98; RESP 15; TEMP 97.5; O2SAT 97
--- NOTE | 2016-07-24 17:10 | GCON ---
[f rep st] CONSULTATION NEUROLOGY CONSULT DATE OF CONSULTATION: 07/24/2016 REFERRING PHYSICIAN: Brenden Barajas MD CHIEF COMPLAINT: Left arm numbness. HISTORY OF PRESENT ILLNESS: Ms. Herron is a very pleasant 41-year-old lady who states she is on palliative care for endstage COPD from a 25-year history of heavy smoking. She wears oxygen with activity and sleep. The patient states she has a longstanding history of cervical radiculopathy with intermittent left arm numbness in the background. Her last episode was of several months ago. She also states she has a history of chest pressure related to her PVCs. She had an ablation procedure for PVCs last Sunday and developed some chest pressure after that procedure, which has slowly been resolving. On Sunday, she developed some left arm numbness in her deltoid region. No weakness. No symptoms in her left face or left leg. No visual field cut. No aphasia or dysarthria. It felt similar to her previous radicular symptoms, but more restricted in its distribution in the proximal arm, whereas previously it felt like it was in her "whole arm." She does have neck discomfort with this symptom. REVIEW OF SYSTEMS: Ten-point review of systems was performed and only pertinent to HPI. Past medical history, social history and family history and home medications per the admitting history and physical. PHYSICAL EXAM: VITAL SIGNS: Blood pressure 106/48, temperature 36.8, O2 sat is 95%, heart rate 83. GENERAL: In no acute distress, very pleasant. HIGHER MENTAL FUNCTION: She is awake and alert. Names 5/5. Follows commands 5/5. Repeats 5/5. Cranial nerves: Normal 2 through 7, 11, and 12. No visual field cuts. No dysarthria. Motor exam: Normal strength, tone, and deep tendon reflexes throughout. Toes downgoing bilaterally. Sensory exam: Normal to light touch in all 4 extremities distally. Proximally in the left arm, she felt some subjective difference in her deltoid area on the left versus the right. Coordination: Normal in the upper and lower extremities. IMAGING: She had an MRI brain - which was normal, no acute infarct. IMPRESSION AND PLAN: 1. Left upper extremity paresthesias. 2. Intermittent neck pain, chronic. The patient's clinical history and neurologic exam may suggest some recurrent left cervical radiculopathy symptoms. She has had these symptoms in the past and they may have flared up with positioning during her ablation procedure or postoperatively as she has been less mobile than usual. Indeed, I was able to reproduce some of the paresthesia numbness by hyper-elevating her left arm, which caused the numbness to become more intense and some increased midcervical neck discomfort. She had no meningismus on exam. Overall, her history and physical exam suggested some cervical radiculopathy. I counseled her as such. I am reassured by her history and by the negative brain MRI. There is no evidence of acute stroke. The symptoms should resolve over the next few weeks. If they are not completely or essentially resolved by 12 weeks, she can follow up with her primary care physician, Dr. Mckinley, to consider MRI of the cervical spine. I discussed the case with Trell Jimenez of Cardiology. Further anti- thrombotics and cardiac care per their service. They are discussing with the patient antiplatelet versus a course of anticoagulation. No further recommendations from my standpoint. We will sign off and follow up as needed. Thank you for this consultation. /[id number]/MODL MTDD
[2016-07-24] MEDS ORDERED: APIXABAN 2.5 MG TAB PO SCH (21:00)
--- NOTE | 2016-07-25 10:18 | GDS ---
[f rep st] DISCHARGE SUMMARY PREADMISSION DIAGNOSES: 1. PVCs with recent PVC ablation in the left coronary cusp. 2. Subacute chest pressure. 3. Left arm numbness. 4. Chronic obstructive pulmonary disease. DISCHARGE DIAGNOSES: 1. History of PVCs status post PVC ablation, 07/19/2016. 2. Pericarditis. 3. Left cervical adenopathy symptoms. 4. Chronic obstructive pulmonary disease. PROCEDURES DONE DURING HOSPITALIZATION: 1. Chest x-ray. 2. Electrocardiogram. 3. Chest CTA. 4. Brain MRI. 5. Echocardiogram. CONSULTATIONS: Cardiology, our service; Neurology, Dr. Jha. BRIEF HISTORY: Please see history and physical. Mrs. Herron is a 41-year-old female with noted history of frequent premature ventricular contractions, unable to take beta blockers due to history of significant COPD. She underwent electrophysiology procedure with ablation of PVCs, found to be started in the left coronary cusp. Postprocedure she did undergo coronary angiogram showing normal left main, no significant disease. She was discharged home. She reports since being home, she has developed a midsternal chest pressure, substernal, and it has been mostly continuous since her hospital discharge. She denies of any palpitation. She is also reporting left upper arm numbness since her procedure. She was evaluated. Her initial electrocardiogram showed sinus rhythm with no Q-waves, ST or T-wave abnormalities suggesting acute ischemia. It was noted that her initial troponin was elevated, but in comparison to her discharge troponin on the after EP ablation, it has reduced, it was cycled again, showing a downward decline. She did have a CTA of the chest that was negative for pulmonary embolism. She had a brain MRI without contrast which was normal. She had been started on nonsteroidal anti- inflammatories, which mildly improved her symptoms. She did receive a dose of IV Toradol this morning, reporting total relief of symptoms. She did undergo echocardiogram showing no significant change from her post EP echo that was done 2 days ago, normal LV EF, the atrial septum was aneurysmal, but no pericardial effusion. Patient was evaluated by Neurology who felt that her left arm was due to previous injury, and potentially positioning on the table, and felt that this was due to recurrence of left cervical neuropathy. Dr. Jha felt that this would improve over time, and reported that if it had not improved in 12 weeks, she is to follow up with her primary care provider. He did not feel like there was any evidence of any acute stroke. At the current time, patient feels she is feeling better, denies any shortness of breath, chest pain, palpitations. She remained in sinus rhythm since her hospital procedure with no premature ventricular contractions noted. PHYSICAL EXAMINATION: GENERAL APPEARANCE: Short, well-groomed, female. She is alert, oriented to person, place, time, and situation. Appears to be under no acute distress. VITAL SIGNS: Current vital signs are blood pressure of 101/67, heart rate is 98, respirations are 15 saturating 97% on room air. Temperature 36.4 degrees Celsius. HEENT: Head is normocephalic. Lips and tongue are pink and moist, with no signs of cyanosis. Conjunctiva pink. NECK: Trachea is midline. +2 carotid pulses bilateral. No auscultated bruits, no jugular vein distention. ABDOMEN: Soft, nontender, bowel sounds x4 quadrants, no organomegaly, no palpable masses. SKIN: [place], warm, dry, no cyanosis, no clubbing. No peripheral edema. VASCULAR: +2 carotids bilateral, +2 radials bilateral, +1 dorsal pedal and posterior tibial pulses bilateral. The patient has equal grasp bilateral. NEURO: Appears cranial nerves 2-12 grossly intact. LABORATORY: On admission, WBC was 7.12, hemoglobin of 13.8, hematocrit of 40.8 , platelet count 319. INR was 1.09. Patient was noted to have an initial troponin of 0.58, repeated troponin level on the was 0.47. Note that patient did recently undergo electrophysiology ablation on the , and her previous troponin on discharge was 0.187 which was expected to be elevated post ablation. Her basic metabolic panel done today was sodium 137, potassium 4.2, chloride 106, CO2 22, BUN 9, creatinine 0.7, glucose 86, calcium 8.7. Her proBNP was 92 on 07/23/2016. TSH on admission was 2.80. STUDIES: Admission electrocardiogram as mentioned above. Echocardiogram as mentioned above. Brain MRI, as mentioned above. CT of the chest as mentioned above. Chest x-ray on admission showed no acute cardiopulmonary process. DISCHARGE DISPOSITION: Patient will be discharged home in fair condition. She is under activity restrictions of taking it easy for the next week, with no strenuous activity for the next 2 weeks. DISCHARGE MEDICATIONS: Please see discharge med reconciliation sheet. 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 She will be sent home on ibuprofen 200 mg p.o. twice daily. For her history of GERD, she will continue taking her omeprazole and Zantac as ordered. No other significant changes in her home medications. She will continue on 81 mg aspirin for the next 8 weeks post ablation. DISCHARGE INSTRUCTIONS: Went over again post PVC ablation instructions including continue monitoring for signs of infection at insertion sites, medication compliance, monitoring for signs of bleeding, and activity restrictions. The patient also reminded that she is at a high risk of thrombotic event due to recent ablation, and she has been encouraged, while awake, to get up and walk 5-10 minutes every 45 min sitting. She will continue aspirin therapy for the next 6 weeks as per instructions. We have made a followup appointment for her to be seen in [facility] on August 09 with myself, and she will follow up with Dr. Barnes in the beginning of August as planned. At the time of discharge, patient verbalizes understanding of all discharge instructions. She has also been instructed that if her left arm numbness does not get better in 12 weeks, she is to follow up with her PCP as per the instructions of Dr. Jha. At the time of discharge, patient verbalizes understanding of all discharge instructions. She has been told that if any problems or concerns come up post discharge, she is to call our office or seek medical attention immediately. TOTAL TIME SPENT ON DISCHARGE: Greater than 30 minutes. /[id number]/MODL MTDD
== END 2016-07-24 17:09 | disposition home or self-care (01) | DRG 74 ==
LOC: F2W 07-23 09:20 → OBSVTOIN 07-23 12:53
PROVIDERS: ADMIT Student in an Organized Health Care Education/Training Program; ATTEND Internal Medicine Cardiovascular Disease
DX: M54.12 Radiculopathy, cervical region (principal); I31.9 Disease of pericardium, unspecified; J44.9 Chronic obstructive pulmonary disease, unspecified; Z86.79 Personal history of other diseases of the circulatory system; K21.9 Gastro-esophageal reflux disease without esophagitis; M51.26 Other intervertebral disc displacement, lumbar region; Z90.710 Acquired absence of both cervix and uterus; Z87.891 Personal history of nicotine dependence; Z82.49 Family history of ischemic heart disease and other diseases of the circulatory system; Z23 Encounter for immunization
CPT/HCPCS: 96374; G0008; G0009; G0378; J1885; J2405; Q9967